=== PATIENT | male | born 1940 | race Caucasian/White ===

== ENCOUNTER 2021-10-06 07:56 | Day surgery (SDC) | payer MEDICARE, SELFPAY ==
[2021-08-26 13:55] VITALS: BMI 16.5
[2021-10-06] VITALS (15 sets, daily range): BP systolic 121–173; BP diastolic 62–83; PULSE 48–71; RESP 12–20; TEMP 36.3–37.3; O2SAT 96–100; BMI 16.5
--- NOTE | 2021-10-06 09:01 | PM.HP.1 ---
History of Present Illness History of Present Illness Date Patient Seen: 10/06/21 Time Patient Seen: 09:02 Chief complaint: right hernia repair - Inguinal Narrative: Tai Gee is a an 80-year-old man who has a recurrent right inguinal hernia. He believes that he had an open right inguinal hernia repair without mesh many years ago and a laparoscopic right inguinal hernia repair with mesh 5 years ago. See the office note for more detail. Patient History Medical History Asthma Familial tremor Memory problem Pneumonia Rendu Osler Thomas syndrome Surgical History H/O right knee surgery (06/21/00) H/O vasectomy (1969) History of hernia surgery History of surgery (1979) Hx of bilateral inguinal hernia repair (05/16/01) Hx of knee surgery (06/21/00) Family & Social History Social History: household members spouse Prior Living Arrangements House Safety & Behavioral: Been Physically Hurt or No Threatened By a Person Suicidal Ideation Description None Suicide Plan Description No Plan Tobacco & Substance use: Smoking Status Former smoker alcohol intake current alcohol intake frequency 0-2 drinks per day Substance Use Type marijuana Meds Home Medications and Allergies Home Medications Medication Instructions Recorded Confirmed Type propranolol 10 mg tablet 5 mg PO BID 07/22/21 10/06/21 History Allergies Allergy/AdvReac Type Severity Reaction Status Date / Time calcipotriene [From Dovonex] Allergy Pt does Verified 10/06/21 08:34 not recall reaction Penicillins Allergy Pt does Verified 10/06/21 08:34 not recall reaction Exam Const General: healthy appearing Resp Effort & Inspection: normal respiratory effort GI Other: Recurrent right inguinal hernia Assessment & Plan Assessment and plan (1) Recurrent right inguinal hernia: Status: Acute Plan 80-year-old man with a recurrent right inguinal hernia. Will plan to proceed with an open recurrent right inguinal hernia repair with mesh Time Spent With Patient Critical Care time: I spent a total of [] minutes of critical care time on this patient's care today; this time is exclusive of procedural time.
[2021-10-06] MEDS: LACTATED RINGERS 1,000 ML 42 ML IV (09:06)
[2021-10-06] MEDS: CEFAZOLIN 2 GM IN 0.9 % NACL 100 ML IV (09:43)
--- NOTE | 2021-10-06 09:51 | SUR.OPER ---
Supine on padded OR bed, head on pillow, arms secured on padded arm boards at <90 degrees abduction, legs uncrossed, safety belt at thigh, tape over blanket over lower legs.
[2021-10-06] MEDS: LIDOCAINE 1% W/EPI 20 ML INJ (09:55)
--- NOTE | 2021-10-06 10:49 | PM.OP.1 ---
Operative Date/Time/Diagnoses Date of procedure: 10/06/21 Time of procedure: 10:49 Pre-op diagnosis: Recurrent right inguinal hernia Post-op diagnosis: same Procedure & Clinicians Procedure: Open recurrent right inguinal hernia repair with mesh Same procedure as scheduled: Yes Surgeon: Antonio Silveira Anesthesia Type: Spinal Operative Notes Findings: Sliding indirect defect Procedure in detail: Preoperative antibiotic was administered. The patient was brought to the operating room and spinal anesthesia was administered by Dr. Tam Schmid. The right groin was prepped and draped in the normal fashion and a time-out was performed. Roughly 10 mL of local anesthetic were injected into the skin and subcutaneous adipose tissue over the right groin. A 6 cm incision was made over the right inguinal canal. Dissection was carried down through the subcutaneous adipose tissue. The hernia was identified when the patient was asked to cough. It appeared that the external oblique fascia had not been closed during his prior open hernia repair. We then dissected the cord structures free from the surrounding scar tissue and looped a Heri drain around the cord. We completely exposed the inguinal canal. We could see a sliding indirect hernia coming through the internal ring. We then placed a polypropylene mesh against the floor of the inguinal canal. The mesh was secured with multiple interrupted 3-0 Prolene sutures to the pubic tubercle and shelving edge of the inguinal ligament as well as to the conjoint tendon medially. We overlapped the tails to recreate an internal ring and secured the medial tail to the inguinal ligament with additional sutures. We injected some more local into the fatty tissue in the inguinal canal and cord. Finally, we removed the Heri drain and closed the external oblique fascia with a running 3-0 Vicryl suture. Skin was closed with interrupted 3-0 Vicryl dermal sutures and a running 4 Monocryl subcuticular stitch. EBL 5 mL The patient was awakened and brought to recovery room. Post-operative Condition: stable Disposition: PACU
[2021-10-06] MEDS: ACETAMINOPHEN 325 MG TABLET 650 MG PO ×2 (12:54→20:59)
--- NOTE | 2021-10-06 14:43 | SUR.PHASEII ---
Pt placed on 2/l of 02 and on continuious pulse ox on arrival to [facility] fro PACU, O2 weened off. Slow to wake from spinal. Pt asked to void, unable blader distneded, scanned, greater than 600mls shown, reported to Dr. Silveira, I and O cath done as requested and 550ml out.
--- NOTE | 2021-10-06 15:24 | SUR.PHASEII ---
Jose Enrique Silveira and Petty spoke to pt, pt and update, SCD's on since arrival to [facility] after surgery. Pt with no c/o pain, feels better after bladder drained. Bladder no longer distended. Rates pain 0/10
--- NOTE | 2021-10-06 16:04 | SUR.PHASEII ---
Pt again felthis bladder was distended, bladder scanned for 522mls, Dr. Silveira made aware, pt to stay over night and mckinney catheter to be placed. Catheter placed, awaiting tranfer orders to be placed.
--- NOTE | 2021-10-06 16:58 | SUR.PHASEII ---
Report called, again Dr. Silveira informed of transfer orders needed.
--- NOTE | 2021-10-06 17:24 | SUR.PHASEII ---
Pt left in stable condition.
[2021-10-06] MEDS: LACTATED RINGERS 1,000 ML 75 ML IV (17:47)
[2021-10-06] MEDS: PROPRANOLOL 10 MG TABLET 5 MG PO (20:59)
[2021-10-07] VITALS: BP 135/73; PULSE 60; RESP 12; TEMP 36.6; O2SAT 98
[2021-10-07 04:15] VITALS: BP 162/79; PULSE 63; RESP 16; TEMP 36.8; O2SAT 98
[2021-10-07] MEDS: IBUPROFEN 600 MG TABLET PO (04:15)
[2021-10-07] MEDS: LACTATED RINGERS 1,000 ML 75 ML IV (04:19)
[2021-10-07] MEDS: HYDROCODONE/ACET 5/325 TABLET 1 TAB PO (04:43)
[2021-10-07 07:20] VITALS: BP 130/71; PULSE 71; RESP 18; O2SAT 97
[2021-10-07] MEDS: PROPRANOLOL 10 MG TABLET 5 MG PO (08:49)
--- NOTE | 2021-10-07 10:41 | CM.DPNOTE ---
Called [facility] per Yolie to have pt. picked up at 1300 to [facility]. I spoke to Miroslava himself, and assured me patient will be picked up by ED at 1300. Judy Marin CM Assist.
--- NOTE | 2021-10-07 12:43 | CM.DPNOTE ---
Discharge Planning Note: Patient is medically/surgically stable and has discharge orders. Patient glad to return home to care of spouse in their private home. [place]pm ferry [place]. Spouse will pick him up in Tuesday. [employer] will pick and shovel man here at 1300. Yolie Villanueva RN/DCP
== END 2021-10-07 13:00 | disposition home or self-care (01) ==
LOC: OR 11:03 → AC 17:28
PROVIDERS: Family Provider Specialist; PCP Family Medicine; Referring Provider Surgery; Visit Provider Surgery
PROC: (CPT 49520; principal; 2021-10-06 10:15)
DX: K40.91 Unilateral inguinal hernia, without obstruction or gangrene, recurrent (principal); J45.909 Unspecified asthma, uncomplicated
CPT/HCPCS: 49520; J0690; J2704; J3010